=== PATIENT | female | born 1985 | race Caucasian/White ===

== ENCOUNTER → 2018-03-24 | Outpatient (CLI) | payer OTHER, BC ==
[~2018-03-24] MED LIST: CIPR500 PO; HYDACE10B PO; IBUP600 PO; IBUP800 PO; OXYACE5T PO; Percocet 5-3251 EACH PO
== END | disposition home or self-care (01) ==
LOC: LAB 12:31 → LAB SHORT 12:31
DX: R30.0 Dysuria (principal)
CPT/HCPCS: 87086

== ENCOUNTER → 2018-04-20 | Outpatient (CLI) | payer BC | END | disposition home or self-care (01) | LOC: LAB 11:43 → LAB SHORT 11:43 | DX: R30.0 Dysuria (principal) | CPT/HCPCS: 87086 ==